=== PATIENT | male | born 1940 | race Caucasian/White ===

== ENCOUNTER 2022-07-01 13:47 | Emergency (ER) | payer OTHER ==
[2022-07-01] MEDS ORDERED: Sodium Chloride 0.9% 10 ML Syringe FLUSH PRN (15:33)
[2022-07-01] MEDS ORDERED: Sodium Chloride 0.9% 1,000 ML IV ONE (15:33)
[2022-07-01] MEDS ORDERED: Sodium Chloride 0.9% 2.5 ML Syringe FLUSH PRN (15:33)
[2022-07-01 15:44] LABS: CARBON DIOXIDE,CO2 25.9 mmol/L (21.0-32.0); POTASSIUM,K 3.9 mmol/L (3.5-5.1)
[2022-07-01] MEDS ORDERED: Heparin Sodium 5,000 Units/ML Vial IVPUSH ONE (19:02)
[2022-07-01] MEDS ORDERED: Aspirin 81 MG Tab.Chew PO ONE (19:04)
[2022-07-01] MEDS ORDERED: Heparin Sodium/0.45% NaCl 500 ML IV SCH (19:15)
== END 2022-07-01 21:56 ==
LOC: MW.ED 13:47
DX: R55 Syncope and collapse (principal); I21.3 ST elevation (STEMI) myocardial infarction of unspecified site; R20.2 Paresthesia of skin; K21.9 Gastro-esophageal reflux disease without esophagitis; R91.1 Solitary pulmonary nodule; Z79.82 Long term (current) use of aspirin; Z79.899 Other long term (current) drug therapy
CPT/HCPCS: 36415; 70450; 71045; 71250; 80053; 81003; 84484; 85025; 85610; 85730; 93005; 96361; 96365; 96366; 99285; A9270; J1644; J7030; 93010; 99291